=== PATIENT | male | born 1990 | race African-American/Black ===

== ENCOUNTER 2022-11-19 15:47 | Emergency (ER) | payer MEDICAID ==
[~2022-11-19] VITALS: Ht 182.9 cm; Wt 93.0 kg
[~2022-11-19 15:47] MED LIST: BUSP5TAB3 PO; CLON-457 PO; QUET300T2 PO; RISP1 PO
[2022-11-19 15:57] VITALS: BP 130/69
[2022-11-19] MEDS ORDERED: TETANUS, DIPHTHERIA, PERTUSSIS VAC/PF 0.5ML (>10YR OLD) IM ONE (19:15)
== END 2022-11-19 20:00 | disposition home or self-care (01) ==
LOC: ER 15:47
DX: S00.33XA Contusion of nose, initial encounter (principal); Z86.59 Personal history of other mental and behavioral disorders; Z98.890 Other specified postprocedural states; Z23 Encounter for immunization; W22.8XXA Striking against or struck by other objects, initial encounter; Y93.41 Activity, dancing; Y92.89 Other specified places as the place of occurrence of the external cause; Y99.8 Other external cause status
CPT/HCPCS: 90471; 90715; 99283; Z7610